=== PATIENT | female | born 1930 | race Caucasian/White ===

== ENCOUNTER 2017-11-04 17:44 | Inpatient (IN) | payer MEDICARE ==
[2017-11-04] MEDS ORDERED: NS 0.9% 1000 ML* 1,000 ML IV SCH ×2 (18:30→20:23)
--- OUTSIDE RECORDS SUMMARY | 2017-11-04 18:34 | XMS REPORT ---
:1930 External Reference #:[id number] Author Organization [employer] Address [address] [address] Phone [phone] Care Team Providers Name Role Phone Sylvia Griffin MD Primary Care Physician Unavailable Payers Type Date Identification Numbers Payment Provider Subscriber Medicare Primary Effective: Policy Number: Medicare Anurag Anderson 1998 [id number] PayID: [id number] [address] [place] [address] [facility] Part B Policy Number: [id number] [facility] Anurag Anderson PayID: [id number] [address] [place] [address] Problems Date Description Provider Status Onset: 10/21/2017 Closed fracture of metatarsal bone Jaylen Miramontes MD Active Family History Date Family Member(s) Problem(s) Comments General Heart Disease General Diabetes Father due to CHF () Mother Lung Cancer Mother due to Lung Cancer () Social History Type Date Description Comments Marital Status Single Lives With Alone Cigarette Use Never Smoked Cigarettes ETOH Use consumes 1-2 glasses of wine per day Smoking Patient has never smoked Recreational Drug Use Denies Drug Use Daily Caffeine Consumes on average 2 cups of decaff coffee per day Exercise Type/Frequency Exercises regularly Allergies, Adverse Reactions, Alerts Date Description Reaction Status Severity Comments 06/03/2013 NKDA active Medications Medication Date Status Form Strength Qnty SIG Indications Ordering Provider Multivitamins Active Capsules 1 by Unknown 000 mouth every day Vitamin C, D, E Active daily Unknown 000 Beta Carotene Active Capsules daily Unknown 000 Glucosamine Active Tablets daily Unknown Chondroitin 000 Complex Advanced Omeprazole Active Capsules 20mg [address] mouth every day prn OTC Sleep Aide Active as needed Unknown 000 No Active Hx Manuelito S. Medications 017 - Willow, MD Nhan Silva Hx Tablets 5mg one by Unknown 000 - mouth at bedtime 017 as needed for sleep Vital Signs Date Vital Result Comment 10/21/2017 Height 59 inches 4'11" Weight 130.00 lb BP Systolic 128 mmHg BP Diastolic 78 mmHg Body Temperature 98.1 F Pain Level 1 BMI (Body Mass Index) 26.3 kg/m2 07/10/2017 Height 59 inches 4'11" Weight 128.00 lb w/o shoes Heart Rate 80 /min reg BP Systolic 144 mmHg Lue, reg cuff BP Diastolic 76 mmHg Lue, reg cuff BP Systolic Sitting 136 mmHg Rue, reg cuff BP Diastolic Sitting 76 mmHg Rue, reg cuff BP Systolic Standing 134 mmHg Rue BP Diastolic Standing 76 mmHg Rue Respiratory Rate 16 /min BMI (Body Mass Index) 25.9 kg/m2 Ejection Fraction 60-65% as of 11/2016 echo 01/15/2017 Heart Rate 80 /min BP Systolic 128 mmHg BP Diastolic 80 mmHg Respiratory Rate 16 /min Body Temperature 97.7 F 12/18/2016 Heart Rate 72 /min Respiratory Rate 18 /min Body Temperature 97.7 F 12/11/2016 BP Systolic 130 mmHg BP Diastolic 74 mmHg Respiratory Rate 16 /min 11/19/2016 Heart Rate 72 /min BP Systolic 108 mmHg BP Diastolic 70 mmHg Respiratory Rate 18 /min Body Temperature 98.6 F 11/13/2016 Height 60 inches 5'0" Weight 128.00 lb Heart Rate 66 /min BP Systolic 130 mmHg BP Diastolic 70 mmHg Respiratory Rate 16 /min Body Temperature 98.6 F BMI (Body Mass Index) 25.0 kg/m2 06/03/2013 Height 61 inches 5'1" Weight 130.00 lb Heart Rate 73 /min BP Systolic 156 mmHg BP Diastolic 75 mmHg BMI (Body Mass Index) 24.6 kg/m2 Results Test Date Test Result H/L Range Note Laboratory test finding 06/18/2017 B-Type Natriuretic Peptide 68 pg/mL 1, 2 BNP Troponin-I (TnI) 0.00 ng/mL <0.04 1, 3 Comp Metabolic Panel 06/18/2017 Sodium 140 mmol/L 133-145 1 Potassium 3.9 mmol/L 3.5-5.0 1 Chloride 106 mmol/L 101-111 1 Co2 Carbon Dioxide 31 mmol/L 22-32 1 Anion Gap 3 mmol/L 2-11 1 Glucose 101 mg/dL High 70-100 1 Blood Urea Nitrogen 17 mg/dL 6-24 1 Creatinine 0.53 mg/dL 0.51-0.95 1 BUN/Creatinine Ratio 32.1 High 8-20 1 Calcium 9.0 mg/dL 8.6-10.3 1 Total Protein 6.4 g/dL 6.4-8.9 1 Albumin 4.0 g/dL 3.2-5.2 1 Globulin 2.4 g/dL 2-4 1 Albumin/Globulin Ratio 1.7 1-3 1 Total Bilirubin 0.40 mg/dL 0.2-1.0 1 Alkaline Phosphatase 61 U/L 34-104 1 Alt 19 U/L 7-52 1 Ast 23 U/L 13-39 1 Egfr Non- 109.1 >60 1 Egfr 140.3 >60 1, 4 Laboratory test finding 06/18/2017 TSH (Thyroid Stim 3.29 mcIU/mL 0.34- 5.60 1, 5 Horm) Vitamin B12 382 pg/mL 180-914 1, 6 Laboratory test finding 12/11/2016 Surgical Pathology SEE RESULT BELOW 7 Laboratory test finding 11/13/2016 Surgical Pathology SEE RESULT BELOW 8, 9 1 [id number] 2 >100 to <200 pg/mL: likely compensated congestive heart failure (CHF) 200 to 400 pg/mL: likely moderate CHF >400 pg/mL: likely moderate to severe CHF 3 [id number] 4 Because ethnic data is not always readily available, this report includes an eGFR for both -Americans and non- Americans. The National Kidney Disease Education Program (NKDEP) does not endorse the use of the MDRD equation for patients that are not between the ages of 18 and 70, are , have extremes of body size, muscle mass, or nutritional status, or are non- or non-. According to the National Kidney Foundation, irrespective of diagnosis, the stage of the disease is based on the level of kidney function: Stage Description GFR(mL/min/1.73 m(2)) 1 Kidney damage with normal or decreased GFR 90 2 Kidney damage with mild decrease in GFR 60-89 3 Moderate decrease in GFR 30-59 4 Severe decrease in GFR 15-29 5 Kidney failure <15 (or dialysis) 5 [id number] 6 Normal Range 180 to 914 Indeterminate Range 145 to 180 Deficient Range <145 7 SEE RESULT BELOW Name: ANURAG ANDERSON Analia : [address]: Manuelito Daugherty MD Acct: [id number] Unit: [id number] AGE: 86 Location: [facility] Re12/11/16 SEX: F Status: REG REF SPEC: [id number] EVELYN: 12/11/16152 [facility] DR: Manuelito Daugherty MD REQ: [id number] RECD: 12/11/16 STATUS: SOUT _ ORDERED: LEVEL IV COMMENTS: [id number] FINAL DIAGNOSIS Skin, chest, excision: -- 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 -- All margins are clear. -- Incidental adjacent seborrheic keratosis, inflamed COMMENT: The previous lesion at this site (S1) has been completely excised. CLINICAL HISTORY See S1 for previous pathology report PRE-OPERATIVE DIAGNOSIS Re-excision of skin cancer from chest GROSS DESCRIPTION The specimen is received in formalin labeled, Skin Lesion, Chest, and consists of a 2.8 x 0.8 cm mottled houser-white unoriented skin ellipse excised to a maximum depth of 0.3 cm. The specimen is inked, serially sectioned and entirely submitted in three cassettes. Signed (signature on file) Naima Sloan MD 01/24 1401 END OF REPORT * ML=Testing performed at Main Lab DEPARTMENT OF PATHOLOGY, [address] [place] [address] Michele John M.D. Director [facility] # [id number] SEE RESULT BELOW Name: ANURAG ANDERSON : [address]: Manuelito Daugherty MD Acct: [id number] Unit: [id number] AGE: 86 Location: [facility] Re11/13/16 SEX: F Status: REG REF SPEC: [id number] EVELYN: 11/13/16 [facility] DR: Manuelito Daugherty MD REQ: [id number] RECD: 11/13/16 STATUS: MAE GORDILLO DR: Zeus Garrett MD _ ORDERED: LEVEL IV/2 COMMENTS: [id number] FINAL DIAGNOSIS 1. Skin, right eyebrow, excision: -- Inflamed hyperkeratotic actinic keratosis with focal high-grade dysplasia (squamous carcinoma in situ). -- Deep, tip and lateral margins of resection are clear. 2. Skin, upper chest, excision: -- Squamous carcinoma in situ. -- Carcinoma in situ extends to the unoriented lateral margin of resection. CLINICAL HISTORY No history given GROSS DESCRIPTION 1. The specimen is received in formalin labeled, Right Eyebrow Skin Lesion , and consists of a 1.5 x 0.8 cm houser-white hairbearing unoriented skin ellipse excised to a depth of 0.5 cm with a central 0.7 x 0.5 cm houser-brown spiculated to scabrous area. The specimen is inked, serially sectioned and entirely submitted in one cassette. 2. The specimen is received in formalin labeled, Upper Chest Skin Lesion, and consists of a 0.6 x 0.4 cm speckled houser-brown scabrous skin ellipse excised to a depth 0.3 cm, which is inked, trisected and entirely submitted in one cassette. Signed (signature on file) Michele John MD 1444 END OF REPORT * ML=Testing performed at Main Lab DEPARTMENT OF PATHOLOGY, [address] [place] [address] Michele John M.D. Director [facility] # [id number] Procedures Date CPT Code Description Status 07/10/2017 10965 EKG Tracing & Interpretation Completed 06/27/2017 10861 Holter Monitor Review (24 hr)dr ochoa &ampDami sharma Completed only 12/11/2016 73196 Excise Malig Lesion 1.1-2CM Trunk/Arm/Leg Completed 11/13/2016 78553 Excise Malig Lesion 1.1-2CM Face/Ear/Eyelid/Nose/Lip Completed 11/13/2016 09939 Biopsy Skin Lesion Single Completed 11/12/2016 20238 ECHO Transthoracic, Real-Time 2D With Doppler And Color Completed Flow 07/30/2016 63321 Removal Devitalization Tissue Wound Less Than Equal 20 Completed Square CM Encounters Type Date Location Provider CPT E/M Dx Office Visit 07/10/2017 9:00a [facility] 20706 R42 Kierra Aguiar M.D. R94.31 I44.7 I34.0 I36.1 I37.1 Office Visit 01/15/2017 4:00p [facility] Manuelito Daugherty 80161 D04.5 Of Kierra FRANCO Office Visit 11/13/2016 2:00p [facility] Manuelito Daugherty 75158 D04.39 Of Kierra FRANCO D04.39 D04.5 D04.5 Office Visit 08/14/2016 1:45p [facility], [address] S81.812D [facility] Office Visit 07/02/2013 4:30p [facility] Benny Henriquez 82889 836.0 Of [facility] Office Visit 06/03/2013 1:00p [facility] 30599 836.0 Of [facility] Plan of Care Future Appointment(s):11/21/2017 1:15 pm - [facility] 11:20 am - J[facility] M.[facility]. at [facility]/21/2017 - Jaylen Fe, MDS92.321A Disp fx of second metatarsal bone, right foot, initNew Xrays:Foot Right 3+ VWSFollow up:Follow Up: 4 xyvuxM14.331A Disp fx of third metatarsal bone, right foot, initS92.341A Disp fx of fourth metatarsal bone, right foot, init
--- OUTSIDE RECORDS SUMMARY | 2017-11-04 18:34 | XMS REPORT ---
:1930 External Reference #:[id number] Author Organization [employer] Address [address] [address] Phone [phone] Care Team Providers Name Role Phone Sylvia Griffin MD Primary Care Physician Unavailable Payers Type Date Identification Numbers Payment Provider Subscriber Medicare Primary Effective: Policy Number: Medicare Anurag Anderson 1998 [id number] PayID: [id number] [address] [place] [address] [facility] Part B Policy Number: [id number] [facility] Anurag Anderson PayID: [id number] [address] [place] [address] Problems Date Description Provider Status Onset: 10/21/2017 [...] Form Strength Qnty SIG Indications Ordering Provider Fludrocortisone 10/27/ Active Tablets 0.1mg 60tabs one po Qutaybeh Acetate 2016 bid Rey Aguiar M.D. Multivitamins / Active Capsules 1 by Unknown 0000 mouth every day Vitamin C, D, E / Active daily Unknown 0000 Beta Carotene / Active Capsules daily Unknown 0000 Glucosamine / Active Tablets daily Unknown Chondroitin 0000 Complex Advanced Omeprazole / Active Capsules 20mg [address] mouth every day prn OTC Sleep Aide / Active as needed Unknown 0000 No Active 11/12/ Hx Manuelito Le Medications 2017 - Willow 11/13/ MD 2016 Ambien / Hx Tablets 5mg one by Unknown 0000 - mouth at 06/09/ bedtime 2017 as needed for sleep Vital Signs Date Vital Result Comment 10/27/2017 Height 59 inches 4'11" Weight 126.00 lb with boot brace Heart Rate 46 /min BP Systolic Sitting 130 mmHg LA reg cuff BP Diastolic Sitting 60 mmHg LA reg cuff BMI (Body Mass Index) 25.4 kg/m2 Ejection Fraction 60%-65% echo 11/12/16 10/21/2017 Height 59 inches 4'11" Weight 130.00 [...] Pathology SEE RESULT BELOW 8, 9 1 [id number] 2 >100 to <200 pg/mL: likely compensated congestive heart failure (CHF) 200 to 400 pg/mL: likely moderate CHF >400 pg/mL: likely moderate to severe CHF 3 [id number] 4 Because ethnic data is not always [...] 5 Kidney failure <15 (or dialysis) 5 [id number] 6 Normal Range 180 to 914 Indeterminate Range 145 to 180 Deficient Range <145 7 SEE RESULT BELOW Name: ANURAG ANDERSON : [address]: Manuelito Daugherty MD Acct: [id number] Unit: [id number] AGE: 86 Location: [facility] Re12/11/16 SEX: F Status: REG REF SPEC: [id number] EVELYN: 12/11/16-[address]: Manuelito Daugherty MD REQ: [id number] RECD: 12/11/16 STATUS: SOUT _ ORDERED: LEVEL IV COMMENTS: [id number] FINAL DIAGNOSIS Skin, chest, excision: -- 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 -- All margins are clear. -- Incidental adjacent seborrheic keratosis, inflamed COMMENT: The previous lesion at this site (S17) has been completely excised. CLINICAL HISTORY See [...] performed at Main Lab DEPARTMENT OF PATHOLOGY, [address] [place] [address] Michele John M.D. Director [facility] # [id number] SEE RESULT BELOW Name: ANURAG ANDERSON : [address]: Manuelito Daugherty MD Acct: [id number] Unit: [id number] AGE: 86 Location: [facility] Re11/13/16 SEX: F Status: REG REF SPEC: [id number] EVELYN: 11/13/16 [facility] DR: Manuelito Daugherty MD REQ: [id number] RECD: 11/13/16 STATUS: MAE GORDILLO DR: Zeus Garrett MD _ ORDERED: LEVEL IV/2 COMMENTS: [id number] FINAL DIAGNOSIS 1. Skin, right eyebrow, excision: [...] performed at Main Lab DEPARTMENT OF PATHOLOGY, [address] [place] [address] Michele John M.D. Director [facility] # [id number] Procedures Date CPT Code Description Status 07/10/2017 97244 EKG Tracing & Interpretation Completed 06/27/2017 30879 Holter Monitor Review (24 hr)dr ochoa & edith Completed only 12/11/2016 82644 Excise Malig Lesion 1.1-2CM Trunk/Arm/Leg Completed 11/13/2016 90648 Excise Malig Lesion 1.1-2CM Face/Ear/Eyelid/Nose/Lip Completed 11/13/2016 31460 Biopsy Skin Lesion Single Completed 11/12/2016 00398 ECHO Transthoracic, Real-Time 2D With Doppler And Color Completed Flow 07/30/2016 83834 Removal Devitalization Tissue Wound Less Than Equal 20 Completed Square CM Encounters Type Date Location Provider CPT E/M Dx Office Visit 07/10/2017 9:00a [facility] [address] R42 Kierra Aguiar M.D. R94.31 I44.7 I34.0 I36.1 I37.1 Office Visit 01/15/2017 4:00p [facility] Manuelito Daugherty, [address]95[address] D04.5 Of Kierra FRANCO Office Visit 11/13/2016 2:00p [facility] Daugherty 18804 D04.39 Of Kierra FRANCO D04.39 D04.5 D04.5 Office Visit 08/14/2016 1:45p [facility], [address] S81.812D [facility] Office Visit 07/02/2013 4:30p [facility] Henri[facility] [address]2826 836.0 Of [facility] Office Visit 06/03/2013 1:00p [facility] [address]1610 836.0 Of [facility] Plan of Care Future Appointment(s):01/08/2018 10:00 am - Jai Aguiar M.D. at [facility]12/10/2017 9:30 am - Jai Aguiar M.D. at [facility]11/21/2017 1:15 pm - Jaylen Miramontes MD at [facility]/27/2017 - Jai Aguiar M.D.R55 Syncope and collapseNew Orders :Event MonitorStress Test, Pharmacologic Nuclear (Lexiscan)Follow up:January 2018 before leaving to [facility]
[2017-11-04 18:37] LABS: ABS Basophils 0 10^3/ul (0-0.2); ABS Eosinophils 0.1 10^3/ul (0-0.6); ABS Lymphocytes 1.4 10^3/ul (1.0-4.8); ABS Monocytes 0.5 10^3/ul (0-0.8); ABS Neutrophils 3.9 10^3/ul (1.5-7.7); ABS Nucleated RBC 0 10^3/ul; Hematocrit 39 % (35-47); Hemoglobin 12.9 g/dl (12.0-16.0); Lymphocyte % 23.7 % (25-47); Mean Corpuscular HGB Conc 33 g/dl (31-36); Mean Corpuscular Hemoglobin 30 pg (27-31); Mean Corpuscular Volume 91 fL (80-97); Mean Platelet Volume 11 um3 (7.4-10.4); Nucleated Red Blood Cells % 0; Platelet Count 167 10^3/ul (150-450); Red Blood Count 4.26 10^6/ul (4.0-5.4); Red Cell Distribution Width 13 % (10.5-15); White Blood Count 5.9 10^3/ul (3.5-10.8)
[2017-11-04 18:47] LABS: INR 1.02 (0.77-1.02)
--- NOTE | 2017-11-04 19:15 | ED ---
Courtney Chandra Abhishek, scribed for Julian Desir MD on 11/04/17 at 1903 . Shortness of Breath - HPI Summary HPI Summary: This patient is a 67 y/o F [facility] by a female with a chief complaint of SOB since a week ago. Pt was given medication by doctor that caused her to feel dizzier and pt does not know why she was given the medication. Pt's female acquaintance states the patient was huffing and puffing throughout the week. the patient rates the pain 0/0 in severity. symptoms aggravated by sleeping and movement. symptoms alleviated by nothing. patient reports indigestion (onset Friday night). Patient denies melena, burning urination, abd pain, denies foot pain. Pt is currently not on a blood thinner. Pt was in [place] since the 19 of October abd reports fainting, and dizziness in [place] (2 times). Patient only takes vitamins, NKA, and also has a fractured right foot. - History of Current Complaint Chief Complaint: EDShortnessOfBreath Time Seen by Provider: 11/04/17 18:06 Hx Obtained From: Patient Onset/Duration: Gradual Onset, Lasting Weeks - one week, Still Present Timing: Constant Aggrevating Factors: Other - sleeping and movement Alleviating Factors: Nothing - Allergy/Home Medications Allergies/Adverse Reactions: Allergies Allergy/AdvReac Type Severity Reaction Status Date / Time No Known Allergies Allergy Verified 06/07/16 13:14 PMH/Surg Hx/FS Hx/Imm Hx Endocrine/Hematology History: Denies: Hx Diabetes, Hx Anemia Cardiovascular History: Denies: Hx Hypertension, Hx Pacemaker/ICD Respiratory History: Denies: Hx Chronic Obstructive Pulmonary Disease (COPD) History: Denies: Hx Renal Disease Sensory History: Denies: Hx Hearing Aid Psychiatric History: Denies: Hx Panic Disorder - Cancer History Hx Chemotherapy: No Hx Radiation Therapy: No - Surgical History Surgery Procedure, Year, and Place: Lt BREAST- LUMPECTOMY xs 2-BENIGN -1960s. CATARACT - 2008. TONSILECTOMY - Immunization History Date of Influenza Vaccine: 07/2017 Immunizations Up to Date: Yes Infectious Disease History: No Infectious Disease History: Denies: Traveled Outside the [place] in Last 30 Days - Social History Alcohol Use: Occasionally Substance Use Type: Reports: None Smoking Status (MU): Never Smoked Tobacco Review of Systems Constitutional: Negative Eyes: Negative ENT: Negative Cardiovascular: Negative Positive: Shortness Of Breath Gastrointestinal: Other - Negative melena Positive: Other - indigestion. Negative: Abdominal Pain Negative: burning Positive: Myalgia - Negative foot pain Skin: Negative Neurological: Negative Psychological: Normal All Other Systems Reviewed And Are Negative: Yes Physical Exam - Summary Physical Exam Summary: General: well-appearing, no pain distress Skin: warm, color reflects adequate perfusion, dry Head: normal Eyes: EOMI, KRYS ENT: normal Neck: supple, nontender Respiratory: CTA, breath sounds present, Crackles in the right base Cardiovascular: RRR bradycardic and murmur Abdomen: soft, nontender Bowel: present Musculoskeletal: Calves are non-swollen and non-tender, right foot in the walking boot Neurological: normal, sensory/motor intact, A&O x3 Psychological: affect/mood appropriate Triage Information Reviewed: Yes Vital Signs On Initial Exam: Initial Vitals Temp Pulse Resp BP Pulse Ox 98.4 F 40 18 160/54 92 11/04/17 17:48 11/04/17 17:48 11/04/17 17:48 11/04/17 17:48 11/04/17 17:48 Vital Signs Reviewed: Yes - [place] Coma Scale Coma Scale Total: 15 Diagnostics - Vital Signs Vital Signs Temp Pulse Resp BP Pulse Ox 11/04/17 18:23 98 11/04/17 17:48 98.4 F 40 18 160/54 92 - Laboratory Lab Results: Lab Results 11/04/17 11/04/17 Range/Units 18:25 18:25 WBC 5.9 (3.5-10.8) 10^3/ul RBC 4.26 (4.0-5.4) 10^6/ul Hgb 12.9 (12.0-16.0) g/dl Hct 39 (35-47) % MCV 91 (80-97) fL MCH 30 (27-31) pg MCHC 33 (31-36) g/dl RDW 13 (10.5-15) % Plt Count 167 (150-450) 10^3/ul MPV 11 H (7.4-10.4) um3 Neut % (Auto) 66.8 (38-83) % Lymph % (Auto) 23.7 L (25-47) % [place] % (Auto) 7.9 (1-9) % Eos % (Auto) 1.0 (0-6) % Baso % (Auto) 0.6 (0-2) % Absolute Neuts (auto) 3.9 (1.5-7.7) 10^3/ul Absolute Lymphs (auto) 1.4 (1.0-4.8) 10^3/ul Absolute Monos (auto) 0.5 (0-0.8) 10^3/ul Absolute Eos (auto) 0.1 (0-0.6) 10^3/ul Absolute Basos (auto) 0 (0-0.2) 10^3/ul Absolute Nucleated RBC 0 10^3/ul Nucleated RBC % 0 INR (Anticoag Therapy) 1.02 (0.77-1.02) APTT 32.5 (26.0-36.3) seconds Result Diagrams: 11/04/17 18:25 11/04/17 18:25 Lab Statement: Any lab studies that have been ordered have been reviewed, and results considered in the medical decision making process. Course/Dx - Course Course Of Treatment: ADMIT HOSPITALIST. CRITICAL CARE TIME LESS THAN 30 MINUTES - Diagnoses Provider Diagnoses: Heart block, Dyspnea Discharge - Discharge Plan Condition: Stable Disposition: ADMITTED TO [facility] Referrals: Magalis Griffin, JEWELRY REPAIRER [Primary Care Provider] - The documentation as recorded by the Courtney grossman Abhishek accurately reflects the service I personally performed and the decisions made by , Julian Desir MD.
--- NOTE | 2017-11-04 19:22 | RAD ---
INDICATION: Right lower extremity edema. COMPARISON: There are no prior studies available for comparison. TECHNIQUE: Multiple real-time, color flow and Doppler tracings of the right lower extremity were obtained. FINDINGS: The common femoral, femoral, profunda femoral and popliteal veins all demonstrate normal compressibility, augmentation with compression and phasic response with respiration. The posterior tibial and peroneal veins demonstrate normal compressibility and augmentation with compression. IMPRESSION: NO EVIDENCE FOR DEEP VENOUS THROMBOSIS.
[2017-11-04 20:05] LABS: Urine Appearance Clear; Urine Blood 1+ (Negative); Urine Color Yellow; Urine Ketones Negative (Negative); Urine Protein Negative (Negative); Urine Specific Gravity 1.009 (1.010-1.030); Urine Urobilinogen Negative (Negative)
[2017-11-04] MEDS: Heparin VIAL(*) 5000 UNITS/ML VIAL (FIVE THOUSAND) SUBCUT SCH (22:01)
[2017-11-04] MEDS: Nitrofurantoin Macrocrystals* 100 MG CAP PO SCH (22:19)
--- NOTE | 2017-11-05 01:04 | HP ---
CC: ; Dr. Aguiar * [facility] MEDICINE HISTORY AND PHYSICAL: DATE OF ADMISSION: 11/04/17 PRIMARY CARE PROVIDER: CARTON FORMING MACHINE TENDER: Dr. Aguiar ATTENDING PHYSICIAN: Dr. Johnny Chavez * (dictation provided by Jaelyn Moser NP ). CHIEF COMPLAINT: Shortness of breath with episodes of lightheadedness and fainting. HISTORY OF PRESENT ILLNESS: Ms. Anderson is an 87-year-old female with no significant past medical history, who presents today to the hospital at the strong urging of her friend out of concern for recent history of lightheadedness , fainting, and shortness of breath with activity. Ms. Anderson lives in [facility] for half of the year. She has some memory issues on conversation with her today. Per the electronic medical record outpatient with Dr. Aguiar, the patient had been seen back in June for concern of lightheadedness. The patient had had an EKG, a Holter monitor, and transthoracic echocardiogram this year out of concern for this lightheadedness with no concerning abnormal findings. She went [place] right after she saw Dr. Aguiar. While there, she reported having 2 fainting spells. She also had a mechanical fall and broke 3 toes on her right foot. She states this was not a fainting spell but a mechanical fall related to tripping. She has also noted that she has been more short of breath than usual with activity. She returned to [place] on 10/19/17. She saw Dr. Aguiar per her report on 10/21/17. The plan per her report was for her to have a 3-week heart monitor placed and to go on for a stress test. The patient has a friend in town, who reviewed the patient's recent symptoms with a third friend (who is also a nurse) and the nurse recommended strongly that the patient come to the emergency room for evaluation. The patient states she was out shopping all day and feeling reasonably well without any particular lightheadedness. On returning home and walking up the stairs, she did feel more short of breath again with that level of exertion. She took a nap and then spoke with the friend, who prodded her to come to the ED. In the emergency room, the patient was found to have a bradycardia with a heart rate running as low as 30s. She has a likely Mobitz I block with 2:1 conduction. The remainder of her workup shows that she has an elevated BNP at 627 and a suspicion for a possible urinary tract infection with 2+ leuk esterase , 3+ wbc, but no bacteria. PAST MEDICAL HISTORY: Diverticulosis. MEDICATIONS: The patient takes multiple vitamins including vitamin B, vitamin C , vitamin D, vitamin E, fish oil, chondroitin, and multivitamin daily. ALLERGIES: No known drug allergies. FAMILY HISTORY: The patient reports that her mother related to secondhand smoke from lung cancer. Father related to smoking, had CHF and COPD. SOCIAL HISTORY: The patient states she is never a smoker. She drinks wine occasionally. She denies drug use. She lives alone. She states that her cousins, Neymar and Amanda Case, would be her healthcare proxies, they live in [place]. REVIEW OF SYSTEMS: A 14-point review of systems was completed with Ms. Anderson and all those not mentioned above were negative. PHYSICAL EXAMINATION GENERAL: Ms. Anderson is lying in the bed with her friend at the bedside. She is in no acute distress. VITAL SIGNS: Temperature 98.4, heart rate 41, respiratory rate 22, O2 saturation 91% on room air, blood pressure 178/59. LUNGS: Clear to auscultation bilaterally with no accessory muscle use and good aeration. HEART: S1, S2 and slow, but regular. ABDOMEN: Soft, nontender with bowel sounds positive x4. EXTREMITIES: Trace edema bilaterally and she has a brace to her right foot. SKIN: Intact. NEUROLOGIC: She is alert. She is oriented x3. She does have some apparent memory loss, but tells a coherent story. She moves all extremities equally. There is no facial asymmetry or focal weakness. Extraocular movements are intact. DIAGNOSTIC STUDIES/LAB DATA: WBC 5.9, hemoglobin 12.9, hematocrit 39, platelet count 167. INR 1.02. D-dimer 277. Sodium 139, potassium 4.1, chloride 106, serum bicarbonate 28, BUN 21, creatinine 0.76, glucose 99, lactic acid 0.6. CRP 3.55. BNP 627. TSH 5.46. Urine shows 2+ leuk esterase and 3+ wbc, but no bacteria. EKG shows 2:1 heart block either Mobitz I or Mobitz II. The patient's heart rate did increase with activity; therefore, it is more likely a Mobitz I. Venous Doppler study was performed for lower extremity swelling to the right and showed no evidence for deep vein thrombosis. ASSESSMENT: Ms. Anderson is an 87-year-old female with no significant past medical history, who presents to the hospital after a year or so of intermittent episodes of lightheadedness culminating in 2 episodes of fainting while in [place] a few weeks ago. She also reports dyspnea on exertion. In the emergency room, she has been found to have a likely Mobitz I block. Our plans are for admission to the intensive care unit for the followin. Symptomatic heart block: Based on the heart rate response to activity at this point it is suspected as Mobitz I, but it is difficult to tell given that she has 2:1 conduction. I have spoken with Dr. Riggs, who will be seeing the patient tomorrow in consultation. He recommends that the patient be n.p.o. after midnight in the event that a pacemaker needs to be placed. He also recommends that the patient have a transthoracic echocardiogram. I note that her last one was from November 2016 and showed no significant wall motion or valvular abnormalities with intact ejection fraction. The patient is not on any medications that would precipitate heart blocks. 2. Question urinary tract infection. The patient does not endorse any specific urinary tract infection symptoms, but she does have 2+ leuk esterase, 3 + wbc in the urine. Plan to treat with nitrofurantoin and await urine culture results. 3. DVT prophylaxis with heparin subcu. 4. Code status is DNR. TIME SPENT: Approximately 60 minutes was spent in the admission of this patient , more than half the time spent with the patient at the bedside reviewing the events leading up to this hospitalization, performing the physical examination, and reviewing my plan of care. JAELYN MOSER, DISPLAY AND BANNER DESIGNER [id number]/[facility] #: [id number] GAIL
[2017-11-05] MEDS: Heparin VIAL(*) 5000 UNITS/ML VIAL (FIVE THOUSAND) SUBCUT SCH ×3 (05:47→21:27)
[2017-11-05] MEDS ORDERED: ceFAZolin 2 GM PREMIX (*) 2 GM/50 ML BAG IVPB ONE (09:01)
[2017-11-05] MEDS ORDERED: NS 0.9% 1000 ML* 1,000 ML IV SCH (09:15)
[2017-11-05] MEDS: Nitrofurantoin Macrocrystals* 100 MG CAP PO SCH ×4 (09:49→21:28)
--- NOTE | 2017-11-05 10:47 | ECHO ---
Patient: ANURAG RICARDO [facility] Rec#: [id number] : 1930 Date: 11/05/2017 Age: 87y Height: 150 cm / 59.1 in Weight: 57.2 kg / 126.1 lbs Sex: F BSA: 1.5 Room#: ICU 3 Admit Date#: 11/05/2017 Type: Inpatient Referring: Jaelyn Moser NP Reading: Lyly Read MD Learning And Development Associate: Yvette Waite RN RDCS CC: Jai Aguiar MD CC: Magalis Griffin NP Transthoracic Echocardiogram Indication: Heart block, syncope, SOB BP: 162/62 HR: 36 Rhythm: Heart Block Findings History: Lightheadedness, syncope Technical Comments: The study quality is fair. Left Ventricle: The left ventricular chamber size is normal. There is increased basal septal hypertrophy noted without evidence of an increased gradient across the left ventricular outflow tract. Global left ventricular wall motion and contractility are within normal limits. There is normal left ventricular systolic function. The estimated ejection fraction is 55-60%. The assessment of diastolic function is non-diagnostic. Left Atrium: The left atrium is mildly dilated. Right Ventricle: The right ventricular chamber size and systolic function are within normal limits. Right Atrium: The right atrial cavity size is normal. Aortic Valve: The aortic valve is trileaflet. The aortic valve leaflets are mildly thickened. There is a trace of aortic regurgitation. There is borderline aortic stenosis present. Mitral Valve: The mitral valve leaflets are mildly thickened. There is moderate mitral regurgitation. There is no evidence of mitral stenosis. Tricuspid Valve: The tricuspid valve leaflets are normal. There is moderate tricuspid regurgitation. The right ventricular systolic pressure is estimated at 49 mmHg. There is evidence of moderate pulmonary hypertension. There is no tricuspid stenosis. Pulmonic Valve: The pulmonic valve structure is not well visualized. There is trace to mild pulmonic regurgitation. There is no pulmonic stenosis. Pericardium: There is no significant pericardial effusion. A pericardial fat pad is visualized. A left pleural effusion is present. Aorta: There is no dilatation of the ascending aorta. The aortic arch is not well visualized. There is no dilation of the aortic root. Pulmonary Artery: The main pulmonary artery is not well visualized. Venous: The inferior vena cava appears normal in size. There is less than 50% respiratory change in the inferior vena cava dimension. Conclusions The patient was in high degree heart block thoughout the study. The left ventricular chamber size is normal with basal septal hypertrophy noted. Global left ventricular wall motion and contractility are within normal limits. The estimated ejection fraction is 55-60%. The left atrium is mildly dilated. The right ventricular chamber size and systolic function are within normal limits. There is a trace of aortic regurgitation. The right ventricular systolic pressure is estimated at 49 mmHg, moderately elevated. A left pleural effusion is present. Compared with the prior echo of 11/12/16, the degree of MR and TR have increased from mild, PA pressure has increased from normal. Heart block is new. Measurements Name Value Normal Range RVDdMajor (2D) 3.6 cm (2.2 - 4.4) RAd ISD 4CH 4.8 cm (3.4 - 4.9) RA (A4C)W 4.4 cm (2.9 - 4.6) IVSd (2D) 1 cm (0.6 - 1) LVPWd (2D) 1 cm (0.6 - 1) LVIDd (2D) 4.6 cm (3.6 - 5.4) Aortic Annulus 1.7 cm (1.4 - 2.6) Ao root diameter (2D) 2.8 cm (2.1 - 3.5) Ascending Ao 3.1 cm (2.1 - 3.4) LA dimension (AP) 2D 3.3 cm (2.3 - 3.8) LAd ISD 4CH 5.1 cm (2.9 - 5.3) LA ISD 4CH W 4.2 cm (2.5 - 4.5) Name Value Normal Range LA ESV SP 4CH (A/L) 47 ml - LA ESV SP 2CH (A/L) 51 ml - LA ESV BP (A/L) 53 ml - LA ESV BP (A/L) index 35 ml/m2 - LA ESV SP 4CH (MOD) 44 ml - LA ESV SP 2CH (MOD) 49 ml - Name Value Normal Range MV E-wave Vmax 0.96 m/sec - MV deceleration time 269 msec - MV A-wave Vmax 1.1 m/sec - MV E:A ratio 0.9 ratio - LV septal e' Vmax 0.11 m/sec - LV lateral e' Vmax 0.14 m/sec - LV E:e' septal ratio 8.7 ratio - LV E:e' lateral ratio 6.9 ratio - Name Value Normal Range AV Vmax 1.6 m/sec - AV VTI 39.9 cm - AV peak gradient 11 mmHg - AV mean gradient 5 mmHg - LVOT diameter 1.84 cm - LVOT Vmax 1.1 m/sec - LVOT VTI 25.5 cm - LVOT peak gradient 4.7 mmHg - LVOT mean gradient 2.2 mmHg - DOI (VTI) 0.64 ratio - DOI (Vmax) 0.69 ratio - SV LVOT 67.7 ml - CO LVOT 2.4 l/min - Cardiac index 1.6 l/min/m2 - TRAMAINE (continuity Vmax) 1.8 cm2 - TRAMAINE (continuity VTI) 1.7 cm2 - Name Value Normal Range MR flow (PISA) 65 ml/sec - MR PISA radius 0.5 cm - MR alias Vmax 35 cm/sec - Name Value Normal Range TR Vmax 3.2 m/sec - TR peak gradient 41 mmHg - RAP 8 mmHg - RVSP 49 mmHg - IVC diameter 1.7 cm - Name Value Normal Range PV Vmax 0.94 m/sec -
--- NOTE | 2017-11-05 11:33 | CONS ---
CC: ; Dr. Aguiar; Hospitalist * CARDIOLOGY CONSULTATION: DATE OF CONSULT: 11/05/17 REASON FOR CONSULT: Syncope and heart block. HISTORY OF PRESENT ILLNESS: Mrs. Anderson is an 87-year-old woman who states she has had problems with lightheadedness and fainting for many months and has undergone outpatient workup with etiology never elucidated (echo performed on and Holter monitor on 06/26/17). The patient lives in [place] 3 months a year and had some syncopal episodes while there and she continues to have episodes where she will feel lightheaded and winded with exertion. When I examined her and saw her boot on for fractured right foot, she told me this was a trip. Most recently on return here, she has a friend who is a nurse who was extremely short of breath walking on the level and her nursing friend urged her to present to the emergency department. In the emergency department, she was found to have 2:1 heart block and she was admitted to the intensive care unit overnight. The patient states with the oxygen on, her breathing is better. She states she had 1 episode of chest discomfort, but is vague about it. It does not sound like it was related to exertion. The patient was seen on 10/27/[address] Aguiar. His notes also document syncopal episodes in [place] and the fall and fracture. There was no ECG done at that time and her heart rate on that visit was 46 beats a minute. Plans were made for an event monitor and stress test, but they were not yet implemented. PAST MEDICAL HISTORY: 1. Dizziness. 2. Syncope. 3. Falling. 4. Diverticulosis. OUTPATIENT MEDICATIONS: Include; 1. Vitamin B. 2. Vitamin C. 3. Vitamin D. 4. Vitamin E. 5. Fish oil. 6. Chondroitin. 7. Multivitamins. ALLERGIES: She has no known drug allergies. FAMILY HISTORY: Significant in that her mother of lung cancer. Father with a history of congestive heart failure and he also had COPD with a smoking history. SOCIAL HISTORY: Never smoked. Occasional wine. No history of recreational drug use. REVIEW OF SYSTEMS: Negative for recent fevers, chills, or sweats. No recent cough, diarrhea, constipation, hematuria, or dysuria. No recent changes in bowel or bladder habits. No new [id number] medications and as above, almost a year of intermittent dizziness and syncopal episodes intermittently. She does not think she has been exposed to Lyme's and does not think she has had a Lyme titer, but is vague. PHYSICAL EXAM: General: On exam, the patient is an elderly woman, seated in bed, oxygen on at 45 degrees, appears comfortable, in no acute distress. Vital Signs: She is 4 feet 11 inches, weighs 140 pounds. Blood pressure 153/61, heart rate ranging from 35 to 41 beats a minute with high degree AV block. Oxygen saturation 97% on 2 L nasal cannula. She has been afebrile. Psychologic : Pleasant and cooperative. Neurologic: Awake, alert, and oriented to person and place. I did not evaluate for time. Skin: Warm and dry. No cyanosis or rashes. Age appropriate changes. HEENT: Pupils are equal and round. Mucous membranes moist. Neck: Without thyromegaly or lymphadenopathy. Good carotid pulses. No audible bruits. Lungs: Breath sounds were diminished in the bases bilaterally. Few rales in the left mid field, clear in other areas. Coronary: S1 and S2 regular. I did not appreciate murmurs. Abdomen: Soft and nontender. No hepatomegaly. Extremities: Lower extremities were free of edema. She has a boot on the right lower extremity. The lower extremities were warm. DIAGNOSTIC STUDIES/LAB DATA: monitor technician strips show intermittent complete heart block with AV dissociation and escape rhythm alternating with 2: 1 block. A 12-lead ECG done on 11/04/17 at 2110 shows a 2:1 heart block with intermittent beats with left bundle type morphology, others complexes of differing morphology, probable escape beats. LABA: white count 5.9, hemoglobin 12.9, hematocrit 39, and platelets 167,000. INR 1.02, PTT 32.5. D-dimer 277. Sodium 139, potassium 4.1, chloride 106, bicarb 28, BUN 21, creatinine 0.76, glucose 99, ALT 27. Troponin #1 of 0.03, troponin #2 of 0.02. BNP of 627. TSH 5.46. Urinalysis in the ED was leukocyte esterase positive, white cell positive, nitrite negative. Urine culture is pending. Holter from 06/26/17 unable to be interpreted, but per Dr. Aguiar, had a mean heart rate of 71 beats a minute, occasional PVCs and PACs and her echo of 11/12/16 showed an ejection fraction of 60% to 65%, mild mitral and mild tricuspid insufficiency. Final report for echo today pending. SUMMARY: In summary, Nuvia Anderson is an 87-year-old woman with many months of feeling lightheaded, shortness of breath on exertion, and intermittent syncope and falls, now presenting with evidence of AV dissociation and complete heart block. Her echo preliminarily shows normal left ventricular systolic function today and I have therefore, recommended she undergo dual chamber pacemaker implantation and specifics and detailed risks and benefits of the procedure were discussed in depth. The patient appears to have some degree of congestive heart failier on exam and her CXR showed pleural effusions, this may improve post pacemaker implantation, but she may need diuretics post pacemaker as well. I am awaiting your urine culture and sending a Lyme titer, but at age 87, she is at high risk for degenerative heart block and I do not plan to await the results of her Lyme titer prior to implantation. [id number]/[facility] #: [id number] MAIMONIDES MEDICAL CENTERDebi
[2017-11-05] MEDS ORDERED: Furosemide TAB* 20 MG ONE (12:01)
[2017-11-05] MEDS ORDERED: Lidocaine 1% INJ* 10 MG/ML 30 ML SDV ONE (12:28)
[2017-11-05] MEDS ORDERED: Midazolam* 1 MG/ML 5 ML VIAL (5 MG) ONE (12:31)
[2017-11-05] MEDS ORDERED: Iohexol 300 (CONTRAST) 10 ML SDV ONE (12:31)
[2017-11-05] MEDS ORDERED: fentaNYL* 50 MCG/ML 2 ML VIAL (100 MCG VIAL) ONE (12:31)
[2017-11-05] MEDS ORDERED: Furosemide IV* 10 MG/ML VIAL (40 MG) ONE (13:21)
[2017-11-05] MEDS ORDERED: ceFAZolin 1 GM VIAL(*) 1 GM in NS 0.9% 50 ML* 50 ML IVPB SCH (15:00)
[2017-11-05] MEDS: ceFAZolin 1 GM in Dextrose (*) 1 GM/50 ML BAG IVPB SCH ×2 (15:32→23:06)
--- NOTE | 2017-11-05 16:29 | RAD ---
Indication: Postop cardiac pacemaker placement. Comparison: October 30, 2015 Technique: Upright AP 1530 hours Report: Leftward rotation. Leads of newly placed LEFT chest wall pacemaker extend to the RIGHT atrium and RIGHT ventricle. Negative for pneumothorax. Mild prominence of interstitial markings. Probable small bilateral pleural effusions. Upper normal heart size. Prominent mildly ill-defined central pulmonary vasculature. IMPRESSION: Mild pulmonary vascular congestion and interstitial edema with probable small associated pleural effusions. Negative for pneumothorax post dual chamber cardiac pacemaker placement.
--- NOTE | 2017-11-05 17:15 | PN ---
Subjective Date of Service: 11/05/17 Interval History: This is an 87 year old female with no significant medical history that presented with a symptomatic bradycardia with dissociated heart block. Patient seen and examined, s/p PM insertion today with Dr. Read. C/O left sided incisional discomfort, denies chest pain, no SOB, no n/v, increased urine output since procedure, no fever or chills. No further complaints other than some mild fatigue. Objective Active Medications: Acetaminophen (Tylenol Tab*) 650 mg PO Q6H PRN PRN Reason: PAIN Furosemide (Lasix Tab*) 10 mg PO ONCE ONE Stop: 11/06/17 12:00 Last Admin: 11/05/17 12:03 Dose: 10 mg Heparin Sodium (Porcine) (Heparin Vial(*)) 5,000 units SUBCUT Q8HR [facility] Last Admin: 11/05/17 15:31 Dose: 5,000 units Cefazolin Sodium/Dextrose (Kefzol 1 Gm In Dextrose Duplex (*)) 1 gm in 50 mls @ 200 mls/hr IVPB Q8H [facility] Last Admin: 11/05/17 15:32 Dose: 200 mls/hr Nitrofurantoin Macrocrystals (Macrodantin*) 100 mg PO QID JERSON Stop: 11/11/17 17:01 Last Admin: 11/05/17 15:32 Dose: 100 mg Tramadol HCl (Ultram*) 50 mg PO Q8H PRN PRN Reason: PAIN - MODERATE TO SEVERE Vital Signs - 8 hr 11/05/17 11/05/17 11/05/17 09:32 10:00 10:31 Temperature Pulse Rate 35 36 33 Respiratory 27 12 19 Rate Blood Pressure 145/68 165/64 (mmHg) O2 Sat by Pulse 96 98 96 Oximetry 11/05/17 11/05/17 11/05/17 11:00 11:01 11:31 Temperature Pulse Rate 36 35 36 Respiratory 13 16 25 Rate Blood Pressure 183/56 171/64 (mmHg) O2 Sat by Pulse 98 97 100 Oximetry 11/05/17 11/05/17 11/05/17 11:48 12:00 12:02 Temperature 98.6 F Pulse Rate 36 35 Respiratory 12 17 Rate Blood Pressure 161/116 (mmHg) O2 Sat by Pulse 99 99 Oximetry 11/05/17 11/05/17 11/05/17 14:50 15:00 15:01 Temperature Pulse Rate 73 72 Respiratory 17 28 25 Rate Blood Pressure 173/82 (mmHg) O2 Sat by Pulse 93 94 Oximetry 11/05/17 11/05/17 11/05/17 15:31 15:56 16:00 Temperature Pulse Rate 73 69 76 Respiratory 20 30 19 Rate Blood Pressure 178/123 178/84 (mmHg) O2 Sat by Pulse 95 98 92 Oximetry Oxygen Devices in Use Now: Nasal Cannula Appearance: Alert, NAD Eyes: No Scleral Icterus, PERRLA Ears/Nose/Mouth/Throat: NL Teeth, Lips, Gums, Mucous Membranes Moist Neck: NL Appearance and Movements; NL JVP, Trachea Midline Respiratory: Symmetrical Chest Expansion and Respiratory Effort, Clear to Auscultation Cardiovascular: NL Sounds; No Murmurs; No JVD - 100% paced on tele, no ectopy, No Edema Abdominal: NL Sounds; No Tenderness; No Distention Extremities: No Edema, No Clubbing, Cyanosis Skin: No Rash or Ulcers Neurological: Alert and Oriented x 3, NL Sensation Nutrition: Taking PO's Result Diagrams: 11/04/17 18:25 11/04/17 18:25 Additional Lab and Data: Lab Results 11/04/17 11/04/17 Range/Units 18:25 18:25 WBC 5.9 (3.5-10.8) 10^3/ul RBC 4.26 (4.0-5.4) 10^6/ul Hgb 12.9 (12.0-16.0) g/dl Hct 39 (35-47) % MCV 91 (80-97) fL MCH 30 (27-31) pg MCHC 33 (31-36) g/dl RDW 13 (10.5-15) % Plt Count 167 (150-450) 10^3/ul MPV 11 H (7.4-10.4) um3 Neut % (Auto) 66.8 (38-83) % Lymph % (Auto) 23.7 L (25-47) % [place] % (Auto) 7.9 (1-9) % Eos % (Auto) 1.0 (0-6) % Baso % (Auto) 0.6 (0-2) % Absolute Neuts (auto) 3.9 (1.5-7.7) 10^3/ul Absolute Lymphs (auto) 1.4 (1.0-4.8) 10^3/ul Absolute Monos (auto) 0.5 (0-0.8) 10^3/ul Absolute Eos (auto) 0.1 (0-0.6) 10^3/ul Absolute Basos (auto) 0 (0-0.2) 10^3/ul Absolute Nucleated RBC 0 10^3/ul Nucleated RBC % 0 INR (Anticoag Therapy) 1.02 (0.77-1.02) APTT 32.5 (26.0-36.3) seconds Microbiology and Other Data: Microbiology 11/04/17 22:45 Nasal Screen MRSA (PCR)(ROSA) - Final Nasal Mrsa Negative Assess/Plan/Problems-Billing Assessment: - Patient Problems (1) High-grade atrioventricular block Code(s): I44.39 - OTHER ATRIOVENTRICULAR BLOCK SNOMED Code(s): 570822385 Comment: - Pacemaker insertion POD0 - Remain on tele in ICU - Received lasix, monitor I&O - Appreciate and further input from cardiology - Added tramadol PRN surgical pain (2) Asymptomatic bacteriuria Code(s): R82.71 - BACTERIURIA SNOMED Code(s): 258261672 Comment: - suspect colonization - follow cultures - receiving macrodantin (3) Hypertension Code(s): I10 - ESSENTIAL (PRIMARY) HYPERTENSION SNOMED Code(s): 55909953 Comment: - Suspect 2/2 to age - Would allow some permissive hypertension, MAP's are below 100 today - Continue to monitor - Stable/asymptomatic (4) Bradycardia Code(s): R00.1 - BRADYCARDIA, UNSPECIFIED SNOMED Code(s): 27219378 Comment: - Now resolved after PM insertion - Continue to monitor on tele Status and Disposition: Remain inpatient in ICU for continued cardiac care and monitoring. Will defer to cardiology for downgrade. Counseling and/or Coordination of Care Minutes: Coordinated with staff and patient. Time spent >45mins.
[2017-11-05] MEDS: traMADol TAB* 50 MG PO PRN (17:50)
[2017-11-05] MEDS: Acetaminophen TAB* 325 MG PO PRN (21:33)
[2017-11-06] MEDS: traMADol TAB* 50 MG PO PRN (00:13)
[2017-11-06] MEDS: Heparin VIAL(*) 5000 UNITS/ML VIAL (FIVE THOUSAND) SUBCUT SCH ×3 (06:22→23:06)
[2017-11-06] MEDS: Acetaminophen TAB* 325 MG PO PRN ×3 (06:22→19:34)
[2017-11-06] MEDS: ceFAZolin 1 GM in Dextrose (*) 1 GM/50 ML BAG IVPB SCH ×3 (07:30→23:06)
[2017-11-06] MEDS ORDERED: Ondansetron INJ* 2 MG/ML VIAL IV PRN (09:04)
[2017-11-06] MEDS ORDERED: Ondansetron INJ* 2 MG/ML VIAL ONE (09:11)
--- NOTE | 2017-11-06 09:28 | RAD ---
Indication: Pacemaker placement. 2 views of the chest are reviewed. Comparison is made with previous exam dated November 05, 2018. Pacemaker leads are in place and unchanged in position. No pneumothorax is noted. Interstitial edema persists. IMPRESSION: Pacemaker leads in place. Interstitial edema consistent with CHF unchanged from previous exam. No pneumothorax is noted.
[2017-11-06 09:40] LABS: ABS Basophils 0 10^3/ul (0-0.2); ABS Eosinophils 0 10^3/ul (0-0.6); ABS Lymphocytes 0.6 10^3/ul (1.0-4.8); ABS Monocytes 0.3 10^3/ul (0-0.8); ABS Neutrophils 4.2 10^3/ul (1.5-7.7); ABS Nucleated RBC 0 10^3/ul; Eosinophil % 0.8 % (0-6); Hematocrit 38 % (35-47); Hemoglobin 12.6 g/dl (12.0-16.0); Lymphocyte % 10.9 % (25-47); Mean Corpuscular HGB Conc 33 g/dl (31-36); Mean Corpuscular Hemoglobin 30 pg (27-31); Mean Corpuscular Volume 91 fL (80-97); Mean Platelet Volume 10 um3 (7.4-10.4); Nucleated Red Blood Cells % 0; Platelet Count 144 10^3/ul (150-450); Red Blood Count 4.18 10^6/ul (4.0-5.4); Red Cell Distribution Width 13 % (10.5-15); White Blood Count 5.1 10^3/ul (3.5-10.8)
[2017-11-06] MEDS ORDERED: Furosemide IV* 10 MG/ML 2 ML VIAL (20 MG) IV ONE (09:50)
--- NOTE | 2017-11-06 09:57 | PN ---
Subjective Date of Service: 11/06/17 - CC: syncope, light headed Interval History: Pt did well overnight, in radiology this AM, [place], transiently lightheaded, feels better now. Still SOB, sats low off O2. Medications Active Medications: Acetaminophen (Tylenol Tab*) 650 mg PO Q6H PRN PRN Reason: PAIN Last Admin: 11/06/17 06:22 Dose: 650 mg Heparin Sodium (Porcine) (Heparin Vial(*)) 5,000 units SUBCUT Q8HR JERSON Last Admin: 11/06/17 06:22 Dose: 5,000 units Cefazolin Sodium/Dextrose (Kefzol 1 Gm In Dextrose Duplex (*)) 1 gm in 50 mls @ 200 mls/hr IVPB Q8H JERSON Last Admin: 11/06/17 07:30 Dose: 200 mls/hr Ondansetron HCl (Zofran Inj*) 4 mg IV Q6H PRN PRN Reason: NAUSEA Last Admin: 11/06/17 09:15 Dose: 4 mg Tramadol HCl (Ultram*) 50 mg PO Q8H PRN PRN Reason: PAIN - MODERATE TO SEVERE Last Admin: 11/06/17 00:13 Dose: 50 mg Objective Vital Signs: Temp Pulse Resp BP Pulse Ox 97.7 F 59 18 172/82 94 11/06/17 08:00 11/06/17 08:01 11/06/17 08:01 11/06/17 08:01 11/06/17 08:01 Oxygen Devices in Use Now: Nasal Cannula Appearance: elderly female, talking on the phone, appears comfortable. Eyes: PERRLA Ears/Nose/Mouth/Throat: Clear Oropharnyx, Mucous Membranes Moist Neck: NL Appearance and Movements; NL JVP Respiratory: Symmetrical Chest Expansion and Respiratory Effort - diminished breath sounds. Cardiovascular: NL Sounds; No Murmurs; No JVD, RRR Abdominal: No Hepatosplenomegaly Lymphatic: No Inguinal Adenopathy Extremities: No Edema Skin: No Rash or Ulcers - incision healing well, no ecchymosis or hematoma, no infection. Neurological: Alert and Oriented x 3, NL Muscle Strength and Tone Lines/Tubes/Other Access: Clean, Dry and Intact Peripheral IV Laboratory Results: 11/06/17 09:30 INR (Anticoag Therapy) 1.02 (0.77-1.02) 11/04/17 18:25 APTT 32.5 seconds (26.0-36.3) 11/04/17 18:25 Total Bilirubin 0.50 mg/dL (0.2-1.0) 11/04/17 18:25 AST 21 U/L (13-39) 11/04/17 18:25 ALT 27 U/L (7-52) 11/04/17 18:25 Alkaline Phosphatase 66 U/L (34-104) 11/04/17 18:25 CK-MB (CK-2) 3.9 ng/mL (0.6-6.3) 11/04/17 18:25 B-Natriuretic Peptide 627 pg/mL (-100) H 11/04/17 18:25 Total Protein 6.9 g/dL (6.4-8.9) 11/04/17 18:25 Albumin 3.8 g/dL (3.2-5.2) 11/04/17 18:25 Globulin 3.1 g/dL (2-4) 11/04/17 18:25 Albumin/Globulin Ratio 1.2 (1-3) 11/04/17 18:25 TSH 5.46 mcIU/mL (0.34-5.60) 11/04/17 18:25 11/04/17 23:55 Troponin I 0.02 Diagnostic Imaging: CXR today: CHF/pulmonary edema, leads in place, no pneuothorax. EKG Data: Pacer check: excellent pacing thresholds, lead impedance good, good sensing A lead, no underlying [place] ventricular rhythm seen. Assessment/Plan 87 yo female POD #1 dual chamber pacer implant, good lead placement and thresholds. N/V uncertain etiology. Pulmonary Edema with normal LV systolic function but recent bradycardia. Pacer: -Continue kefzol or keflex for 5 days total. -Needs wound check next week with me. N/V - s/p brook white pending. ? due to macrodantin, being stopped. I will check an limited echo to ensure no effusion (pericardial) CHF -Diastolic, possibly related to CHB and bradycardia with decreased forward flow and / or HTN. IV lasix today.
[2017-11-06 09:58] LABS: EGFR Non-African American 114.1 (>60)
--- NOTE | 2017-11-06 11:37 | ECHO ---
Patient: ANURAG RICARDO [facility] Rec#: [id number] : 1930 Date: 11/06/2017 Age: 87y Height: 149.86 cm / 59.0 in Weight: 63.96 kg / 141.0 lbs Sex: F BSA: 1.59 Room#: ICU 3 Admit Date#: 11/05/2017 Type: Inpatient Referring: Lyly Read MD Reading: Lyly Read MD Film Waxer: Dodie Charles,RD,RDMS CC: Magalis Griffin, SUPERVISOR IN CIRCUIT TESTING Transthoracic Echocardiogram Indication: Heart Block BP: 172/82 HR: 60 Rhythm: Paced Findings History: LIMITED ECHO. S/P dual-chambered pacemaker, heart block, syncope Technical Comments: The study quality is good. Left Ventricle: The estimated ejection fraction is 50-55%. There is abnormal ventricular septal wall motion consistent with right ventricular pacemaker. Right Ventricle: The right ventricular global systolic function is normal. A pacemaker wire is visualized in the right ventricle. Right Atrium: A pacemaker wire is visualized in the right atrium. Tricuspid Valve: The tricuspid valve leaflets are normal. There is mild tricuspid regurgitation. The right ventricular systolic pressure is estimated at 39 mmHg. There is evidence of mild pulmonary hypertension. Pericardium: There is no significant pericardial effusion. A left pleural effusion is present. Venous: The inferior vena cava appears normal in size. There is a greater than 50% respiratory change in the inferior vena cava dimension. Conclusions There is no significant pericardial effusion. A left pleural effusion is present. The estimated ejection fraction is 50-55%. There is abnormal ventricular septal wall motion consistent with right ventricular pacemaker. A pacemaker wire is visualized in the right atrium. A pacemaker wire is visualized in the right ventricle. The right ventricular global systolic function is normal. There is mild tricuspid regurgitation. The right ventricular systolic pressure is estimated at 39 mmHg. Compared with echo of 11/05/17, no longer in high degree heart block. EF is stable, septal dysychrony and pacer leads new, PA pressure previously 49 mmHg. The degree of TR has improved from moderate and MR has improved from moderate. Measurements Name Value Normal Range TR Vmax 3 m/sec - TR peak gradient 36 mmHg - RAP 3 mmHg - RVSP 39 mmHg - IVC diameter 1.4 cm -
--- NOTE | 2017-11-06 11:42 | PN ---
Subjective Date of Service: 11/06/17 Interval History: Patient seen and examined. One episode of emesis per RN. Patient states no nausea at present, but feeling tired overall. Denies chest pain, no SOB. States she feels like shes getting a cold. Afebrile, no chills, mild unproductive cough. Objective Active Medications: Acetaminophen (Tylenol Tab*) 650 mg PO Q6H PRN PRN Reason: PAIN Last Admin: 11/06/17 06:22 Dose: 650 mg Heparin Sodium (Porcine) (Heparin Vial(*)) 5,000 units SUBCUT Q8HR [facility] Last Admin: 11/06/17 06:22 Dose: 5,000 units Cefazolin Sodium/Dextrose (Kefzol 1 Gm In Dextrose Duplex (*)) 1 gm in 50 mls @ 200 mls/hr IVPB Q8H [facility] Last Admin: 11/06/17 07:30 Dose: 200 mls/hr Ondansetron HCl (Zofran Inj*) 4 mg IV Q6H PRN PRN Reason: NAUSEA Last Admin: 11/06/17 09:15 Dose: 4 mg Tramadol HCl (Ultram*) 50 mg PO Q8H PRN PRN Reason: PAIN - MODERATE TO SEVERE Last Admin: 11/06/17 00:13 Dose: 50 mg Vital Signs - 8 hr 11/06/17 11/06/17 11/06/17 04:00 04:01 04:30 Temperature 98.9 F Pulse Rate 64 66 60 Respiratory 21 21 16 Rate Blood Pressure 178/87 169/89 (mmHg) O2 Sat by Pulse 96 97 95 Oximetry 11/06/17 11/06/17 11/06/17 05:00 05:30 06:00 Temperature Pulse Rate 60 60 60 Respiratory 15 15 15 Rate Blood Pressure 153/77 166/81 166/78 (mmHg) O2 Sat by Pulse 96 96 96 Oximetry 11/06/17 11/06/17 11/06/17 06:47 07:00 07:30 Temperature Pulse Rate 60 60 62 Respiratory 23 19 20 Rate Blood Pressure 179/87 177/94 153/98 (mmHg) O2 Sat by Pulse 97 96 97 Oximetry 11/06/17 11/06/17 11/06/17 08:00 08:01 09:00 Temperature 97.7 F Pulse Rate 63 59 Respiratory 22 18 15 Rate Blood Pressure 172/82 (mmHg) O2 Sat by Pulse 97 94 Oximetry 11/06/17 11/06/17 11/06/17 09:05 09:08 09:30 Temperature Pulse Rate 64 60 60 Respiratory 15 16 16 Rate Blood Pressure 186/82 171/102 (mmHg) O2 Sat by Pulse 95 96 97 Oximetry 11/06/17 11/06/17 10:00 11:16 Temperature 97.4 F Pulse Rate 60 Respiratory 18 Rate Blood Pressure 166/79 (mmHg) O2 Sat by Pulse 97 Oximetry Oxygen Devices in Use Now: None Appearance: Alert, tired, NAD Eyes: No Scleral Icterus, PERRLA Ears/Nose/Mouth/Throat: NL Teeth, Lips, Gums Neck: NL Appearance and Movements; NL JVP Respiratory: Symmetrical Chest Expansion and Respiratory Effort, Clear to Auscultation Cardiovascular: NL Sounds; No Murmurs; No JVD, No Edema, - - Paced, 62 on tele, no ectopy Abdominal: NL Sounds; No Tenderness; No Distention Extremities: No Edema, No Clubbing, Cyanosis Skin: No Rash or Ulcers Neurological: Alert and Oriented x 3, NL Sensation, NL Muscle Strength and Tone Nutrition: Taking PO's Result Diagrams: 11/06/17 09:30 11/06/17 09:30 Additional Lab and Data: Lab Results 11/04/17 11/04/17 Range/Units 18:25 18:25 WBC 5.9 (3.5-10.8) 10^3/ul RBC 4.26 (4.0-5.4) 10^6/ul Hgb 12.9 (12.0-16.0) g/dl Hct 39 (35-47) % MCV 91 (80-97) fL MCH 30 (27-31) pg MCHC 33 (31-36) g/dl RDW 13 (10.5-15) % Plt Count 167 (150-450) 10^3/ul MPV 11 H (7.4-10.4) um3 Neut % (Auto) 66.8 (38-83) % Lymph % (Auto) 23.7 L (25-47) % [place] % (Auto) 7.9 (1-9) % Eos % (Auto) 1.0 (0-6) % Baso % (Auto) 0.6 (0-2) % Absolute Neuts (auto) 3.9 (1.5-7.7) 10^3/ul Absolute Lymphs (auto) 1.4 (1.0-4.8) 10^3/ul Absolute Monos (auto) 0.5 (0-0.8) 10^3/ul Absolute Eos (auto) 0.1 (0-0.6) 10^3/ul Absolute Basos (auto) 0 (0-0.2) 10^3/ul Absolute Nucleated RBC 0 10^3/ul Nucleated RBC % 0 INR (Anticoag Therapy) 1.02 (0.77-1.02) APTT 32.5 (26.0-36.3) seconds Microbiology and Other Data: Microbiology 11/04/17 22:45 Nasal Screen MRSA (PCR)(ROSA) - Final Nasal Mrsa Negative Assess/Plan/Problems-Billing Assessment: - Patient Problems (1) High-grade atrioventricular block Code(s): I44.39 - OTHER ATRIOVENTRICULAR BLOCK SNOMED Code(s): 999983612 Comment: - Primary POC as per Dr. Read - Pacemaker insertion POD1 - Remain on tele in ICU - Urine output adequate - Added tramadol PRN surgical pain (2) Asymptomatic bacteriuria Code(s): R82.71 - BACTERIURIA SNOMED Code(s): 181445487 Comment: - suspect colonization - Cultures negative - DC macrodantin (3) Hypertension Code(s): I10 - ESSENTIAL (PRIMARY) HYPERTENSION SNOMED Code(s): 84368730 Comment: - Continue to follow - Per patient, BP has always been low/normal at home - Will defer to cardiology if they want to initiate tx, while inpatient? Remains asymptomatic (4) Bradycardia Code(s): R00.1 - BRADYCARDIA, UNSPECIFIED SNOMED Code(s): 46819307 Comment: - Resolved (5) Vomiting Code(s): R11.10 - VOMITING, UNSPECIFIED SNOMED Code(s): 680703327 Comment: - one episode per RN - Zofran PRN - maybe r/t atbx which are now DC'd, and/or anesthesia? - continue to monitor Status and Disposition: Remain inpatient in ICU for further care and monitoring. Counseling and/or Coordination of Care Minutes: Coordinated with patient, staff and Dr. Read.
[2017-11-06] MEDS ORDERED: Furosemide TAB* 20 MG PO ONE (11:59)
[2017-11-07] MEDS: traMADol TAB* 50 MG PO PRN (00:47)
[2017-11-07] MEDS: Heparin VIAL(*) 5000 UNITS/ML VIAL (FIVE THOUSAND) SUBCUT SCH ×3 (05:40→21:47)
[2017-11-07] MEDS: ceFAZolin 1 GM in Dextrose (*) 1 GM/50 ML BAG IVPB SCH ×3 (05:40→22:50)
[2017-11-07] MEDS: Nitrofurantoin Macrocrystals* 100 MG CAP PO SCH (07:24)
--- NOTE | 2017-11-07 10:18 | PN ---
Subjective Date of Service: 11/07/17 Interval History: Patient seen and examined. OOB to chair, appears to be improved from yesterday. Remains tired but appetite is improved. Remains on continuous O2 and becomes SOB with exertion. No more vomiting. Denies chest pain, no headache, no nausea. Objective Active Medications: Acetaminophen (Tylenol Tab*) 650 mg PO Q6H PRN PRN Reason: PAIN Last Admin: 11/06/17 19:34 Dose: 650 mg Heparin Sodium (Porcine) (Heparin Vial(*)) 5,000 units SUBCUT Q8HR [facility] Last Admin: 11/07/17 05:40 Dose: 5,000 units Cefazolin Sodium/Dextrose (Kefzol 1 Gm In Dextrose Duplex (*)) 1 gm in 50 mls @ 200 mls/hr IVPB Q8H [facility] Last Admin: 11/07/17 05:40 Dose: 200 mls/hr Ondansetron HCl (Zofran Inj*) 4 mg IV Q6H PRN PRN Reason: NAUSEA Last Admin: 11/06/17 09:15 Dose: 4 mg Tramadol HCl (Ultram*) 50 mg PO Q8H PRN PRN Reason: PAIN - MODERATE TO SEVERE Last Admin: 11/07/17 00:47 Dose: 50 mg Vital Signs - 8 hr 11/07/17 11/07/17 11/07/17 03:00 04:00 04:08 Temperature 97.7 F Pulse Rate 60 66 63 Respiratory 15 18 21 Rate Blood Pressure 146/74 170/83 (mmHg) O2 Sat by Pulse 96 96 95 Oximetry 11/07/17 11/07/17 11/07/17 05:00 06:00 07:00 Temperature Pulse Rate 60 60 60 Respiratory 18 16 17 Rate Blood Pressure 165/84 159/128 150/87 (mmHg) O2 Sat by Pulse 95 97 95 Oximetry 11/07/17 11/07/17 11/07/17 07:25 08:00 09:00 Temperature 97.8 F Pulse Rate 63 65 Respiratory 16 16 19 Rate Blood Pressure (mmHg) O2 Sat by Pulse 100 85 Oximetry 11/07/17 11/07/17 09:01 10:00 Temperature Pulse Rate 64 Respiratory 19 17 Rate Blood Pressure 143/77 (mmHg) O2 Sat by Pulse 94 94 Oximetry Oxygen Devices in Use Now: Nasal Cannula Appearance: Alert, tired Eyes: No Scleral Icterus, PERRLA Ears/Nose/Mouth/Throat: NL Teeth, Lips, Gums, Mucous Membranes Moist Neck: NL Appearance and Movements; NL JVP, Trachea Midline Respiratory: Symmetrical Chest Expansion and Respiratory Effort, Clear to Auscultation - clear apices, diminished bases, no wheeze Cardiovascular: NL Sounds; No Murmurs; No JVD, No Edema, - - paced Abdominal: NL Sounds; No Tenderness; No Distention Skin: No Rash or Ulcers Neurological: Alert and Oriented x 3, NL Sensation, NL Muscle Strength and Tone Nutrition: Taking PO's Result Diagrams: 11/06/17 09:30 11/06/17 09:30 Additional Lab and Data: Lab Results Microbiology and Other Data: Microbiology 11/04/17 22:45 Nasal Screen MRSA (PCR)(ROSA) - Final Nasal Mrsa Negative Diagnostic Imaging: Patient: ANURAG RICARDO [facility] Rec#: [id number] : 1930 Date: 11/06/2017 Age: 87y Height: 149.86 cm / 59.0 in Weight: 63.96 kg / 141.0 lbs Sex: F BSA: 1.59 Room#: ICU 3 Admit Date#: 11/05/2017 Type: Inpatient Referring: Lyly Read MD Reading: Lyly Read MD Noodle Catalyst Maker: Dodie CharlesLOVEL[facility],RDMS CC: Magalis Griffin, PROCESS ENG Transthoracic Echocardiogram Indication: Heart Block BP: 172/82 HR: 60 Rhythm: Paced Findings History: LIMITED ECHO. S/P dual-chambered pacemaker, heart block, syncope Technical Comments: The study quality is good. Left Ventricle: The estimated ejection fraction is 50-55%. There is abnormal ventricular septal wall motion consistent with right ventricular pacemaker. Right Ventricle: The right ventricular global systolic function is normal. A pacemaker wire is visualized in the right ventricle. Right Atrium: A pacemaker wire is visualized in the right atrium. Tricuspid Valve: The tricuspid valve leaflets are normal. There is mild tricuspid regurgitation. The right ventricular systolic pressure is estimated at 39 mmHg. There is evidence of mild pulmonary hypertension. Pericardium: Assess/Plan/Problems-Billing Assessment: This is an 87 year old female, s/p PM insertion for symptomatic high grade heart block, also with pleural effusion, oxygen-dependent with additional episode of vomiting yesterday. - Patient Problems (1) High-grade atrioventricular block Code(s): I44.39 - OTHER ATRIOVENTRICULAR BLOCK SNOMED Code(s): 627453633 Comment: - Primary POC as per Dr. Read - Pacemaker insertion POD2 - No changes on ECHO (2) Asymptomatic bacteriuria Code(s): R82.71 - BACTERIURIA SNOMED Code(s): 757827067 Comment: - Suspect colonization - Cultures negative - DC macrodantin (3) Hypertension Code(s): I10 - ESSENTIAL (PRIMARY) HYPERTENSION SNOMED Code(s): 95488229 Comment: - BP improved last 24 hours - continue to monitor (4) Bradycardia Code(s): R00.1 - BRADYCARDIA, UNSPECIFIED SNOMED Code(s): 38103726 Comment: - Resolved (5) Vomiting Code(s): R11.10 - VOMITING, UNSPECIFIED SNOMED Code(s): 698879389 Comment: - one episode per RN yesterday - Zofran PRN - PM with good placement per echo - appears to be resolved, tolerating PO today (6) Pleural effusion Code(s): J90 - PLEURAL EFFUSION, NOT ELSEWHERE CLASSIFIED SNOMED Code(s): 13019184 Comment: - Remains on O2 - Will recheck BNP today, may do CT of chest later to see if effusion is resolving - Check sats on and off O2 today Status and Disposition: Remain inpatient. May downgrade from ICU later today if remains stable. Appreciate recs from PT re: CP rehab vs home with [place] at [place]. Counseling and/or Coordination of Care Minutes: Coordinated with Dr. Gely Read. Time spent 45mins.
--- NOTE | 2017-11-07 17:32 | PN ---
Subjective Date of Service: 11/07/17 - cc: weakness Interval History: Pt did well overnight, no longer short of breath. This AM felt very weak getting OOB to the commode. Did better with boot on for fx ankle. PT saw, assisted iwth the walker in her room. Medications Active Medications: Acetaminophen (Tylenol Tab*) 650 mg PO Q6H PRN PRN Reason: PAIN Last Admin: 11/06/17 19:34 Dose: 650 mg Heparin Sodium (Porcine) (Heparin Vial(*)) 5,000 units SUBCUT Q8HR JERSON Last Admin: 11/07/17 16:00 Dose: 5,000 units Cefazolin Sodium/Dextrose (Kefzol 1 Gm In Dextrose Duplex (*)) 1 gm in 50 mls @ 200 mls/hr IVPB Q8H JERSON Last Admin: 11/07/17 15:56 Dose: 200 mls/hr Ondansetron HCl (Zofran Inj*) 4 mg IV Q6H PRN PRN Reason: NAUSEA Last Admin: 11/06/17 09:15 Dose: 4 mg Tramadol HCl (Ultram*) 50 mg PO Q8H PRN PRN Reason: PAIN - MODERATE TO SEVERE Last Admin: 11/07/17 00:47 Dose: 50 mg Objective Vital Signs: Temp Pulse Resp BP Pulse Ox 99.5 F 69 20 157/70 96 11/07/17 16:00 11/07/17 17:01 11/07/17 17:01 11/07/17 16:00 11/07/17 17:01 Oxygen Devices in Use Now: Nasal Cannula Appearance: elderly female, seated, again talking on the phone, appears comfortable. Eyes: PERRLA Ears/Nose/Mouth/Throat: Clear Oropharnyx, Mucous Membranes Moist Neck: NL Appearance and Movements; NL JVP Respiratory: Symmetrical Chest Expansion and Respiratory Effort - diminished breath sounds. Cardiovascular: NL Sounds; No Murmurs; No JVD, RRR Abdominal: No Hepatosplenomegaly Lymphatic: No Inguinal Adenopathy Extremities: No Edema Skin: No Rash or Ulcers - incision healing well, no abnormalities noted. Neurological: Alert and Oriented x 3, NL Muscle Strength and Tone Lines/Tubes/Other Access: Clean, Dry and Intact Peripheral IV Laboratory Results: 11/06/17 09:30 11/06/17 09:30 INR (Anticoag Therapy) 1.02 (0.77-1.02) 11/04/17 18:25 APTT 32.5 seconds (26.0-36.3) 11/04/17 18:25 Total Bilirubin 0.50 mg/dL (0.2-1.0) 11/04/17 18:25 AST 21 U/L (13-39) 11/04/17 18:25 ALT 27 U/L (7-52) 11/04/17 18:25 Alkaline Phosphatase 66 U/L (34-104) 11/04/17 18:25 CK-MB (CK-2) 3.9 ng/mL (0.6-6.3) 11/04/17 18:25 B-Natriuretic Peptide 366 pg/mL (-100) H 11/07/17 12:08 Total Protein 6.9 g/dL (6.4-8.9) 11/04/17 18:25 Albumin 3.8 g/dL (3.2-5.2) 11/04/17 18:25 Globulin 3.1 g/dL (2-4) 11/04/17 18:25 Albumin/Globulin Ratio 1.2 (1-3) 11/04/17 18:25 TSH 5.46 mcIU/mL (0.34-5.60) 11/04/17 18:25 11/04/17 23:55 Troponin I 0.02 Assessment/Plan 87 yo female POD #2 dual chamber pacer implant, SOB and CHF and pleural effusions, s/p lasix. Breathing improved but exam still abnormal in the bases of the lungs. Pt weak amublating this AM. Pacer: -OK to discharge wrt pacer. -Keflex PO for three more days (250 TID) -Needs wound check next week with me. N/V - resolved. SOB -Improved, but may need additional lasix for a day or 2 more, my hope is with resolution of heart block it will improve, but there could be other etiologies behind the pulmonary edema and pleural effusions. Weakness -Ambulate in unit, agree with the walker with age, ankle fx and post op. Pt has an appt with new science consultant Friday, she should keep this to f/u on non cardiac issues above in addition to wound check with me.
[2017-11-08] MEDS: Heparin VIAL(*) 5000 UNITS/ML VIAL (FIVE THOUSAND) SUBCUT SCH ×3 (05:55→21:31)
[2017-11-08] MEDS: ceFAZolin 1 GM in Dextrose (*) 1 GM/50 ML BAG IVPB SCH (05:55)
--- NOTE | 2017-11-08 11:35 | PN ---
Subjective Date of Service: 11/08/17 Interval History: Ms. Anderson reports that she is feeling much better today. She has been up ambulating around the unit. She reports no dyspnea on exertion. She further denies chest pain. She has also had no further nausea or vomiting and denies abdominal pain. She notes that she has asked her cousins from [place] to come stay with her and a friend has offered for her to come to stay with her until they arrive. Objective Active Medications: Acetaminophen (Tylenol Tab*) 650 mg PO Q6H PRN Heparin Sodium (Porcine) (Heparin Vial(*)) 5,000 units SUBCUT Q8HR JERSON Cefazolin Sodium/Dextrose (Kefzol 1 Gm In Dextrose Duplex (*)) 1 gm in 50 mls @ 200 mls/hr IVPB Q8H JERSON Ondansetron HCl (Zofran Inj*) 4 mg IV Q6H PRN Tramadol HCl (Ultram*) 50 mg PO Q8H PRN Vital Signs: Temp Pulse Resp BP Pulse Ox 98.1 F 77 21 160/79 93 11/08/17 09:47 11/08/17 11:12 11/08/17 11:12 11/08/17 11:12 11/08/17 11:12 Oxygen Devices in Use Now: None Appearance: Elderly female sitting up in chair in NAD Eyes: No Scleral Icterus Ears/Nose/Mouth/Throat: Mucous Membranes Moist Neck: Trachea Midline Respiratory: Symmetrical Chest Expansion and Respiratory Effort, Clear to Auscultation Cardiovascular: NL Sounds; No Murmurs; No JVD, - - +1 edema to left lower extremity Abdominal: NL Sounds; No Tenderness; No Distention, No Hepatosplenomegaly Lymphatic: No Cervical Adenopathy Skin: No Rash or Ulcers Neurological: Alert and Oriented x 3, NL Muscle Strength and Tone Nutrition: Taking PO's Result Diagrams: 11/06/17 09:30 11/06/17 09:30 Additional Lab and Data: . Microbiology and Other Data: . Diagnostic Imaging: . Assess/Plan/Problems-Billing Assessment: Ms. Anderson is an 87 year old female, s/p PM insertion for symptomatic high grade heart block now with fluid overload and pleural effusion, oxygen- dependent with additional episode of vomiting yesterday. - Patient Problems (1) CHF (congestive heart failure) Comment: - Off oxygen, denies dyspnea. - Acute diastolic dysfunction in setting of bradycardia, with pleural effusions. - Plan for 20mg lasix po x 1 now given elevated BP. May continue this at discharge or alternate low dose anti-hypertensive if remains elevated. (2) High-grade atrioventricular block Comment: - Primary POC as per Dr. Read. - Pacemaker insertion POD3. - Continue keflex x 3 days. (3) Hypertension Comment: - BP 160-170 - Lasix x 1 now, may need low dose anti-hypertensive at discharge. (4) Asymptomatic bacteriuria Comment: - Suspect colonization - Cultures negative - DC macrodantin (5) Vomiting Comment: - One episode. - Zofran PRN. (6) DVT prophylaxis Comment: - Heparin SQ. Status and Disposition: Remain inpatient. Transfer to telemetry. Patient hopeful for discharge tomorrow with support from family and friends.
[2017-11-08] MEDS ORDERED: Furosemide TAB* 20 MG PO ONE (11:50)
--- NOTE | 2017-11-08 12:41 | OP ---
CC: Dr. Aguiar; Dr. Sylvia Griffin PACEMAKER IMPLANTATION: DATE OF OPERATION: 11/05/17 DATE OF : 30 SURGEON: Lyly Read MD PRE-OP DIAGNOSES: High-degree heart block and syncope. POST-OP DIAGNOSES: High-degree heart block and syncope. ANESTHESIA: MAC. COMPLICATIONS: None. ESTIMATED BLOOD LOSS: Less than 5 cc. DESCRIPTION OF PROCEDURE: The indications, risks, and benefits of the procedure were discussed in de pth with the patient and she was amenable to proceeding. The patient is right-handed and the left subclavian fossa was prepped and draped in the usual sterile fashion. A time-out procedure was called. The patient received 10 cc of radiopaque dye in the left upper extremity outlining left axillary and left subclavian vein. Following this, the patient recei donnie 1% lidocaine locally in addition to Versed and fentanyl for sedation, amounts documented on consc ious sedation sheet. Using a 10-blade knife, a 3-cm incision was made in the left subclavian fossa and using Bovie and angela nt dissection, was extended to the level of the pectoralis muscle. Additional lidocaine was infused inferiorly and medially and using blunt dissection, a small pocket was fashioned. Using a modified Seldinger technique, the left subclavian vein was cannulated and using fluoroscopic guidance, a guidewire inserted. This was repeated a second time. Using an introducer technique, the right ventricular lead was guided into the right ventricular apex and actively fixed in place. Pacing and sensing thresholds were checked. Sensing was not ideal, but pacing was excellent. We then used a second guidewire and a second introducer and the atrial lead w as guided into the right atrial appendage and actively fixed in place. Pacing and sensing thresholds were checked and found to be good. We then rechecked the sensing and pacing thresholds of ventricul ar lead and the sensing had improved. We then sutured both leads to the pectoralis muscle taking car e of that adequate additional lead was placed. Following this, the pocket was copiously irrigated and leads were attached to the generator. The generator was placed in the pocket. The incision was vlad sed with 2 layers of absorbable suture, 2-0 followed by 4-0, followed by roni and external dressin g. We had checked high volts on both leads and no diaphragmatic pacing had been noted. FINDINGS: The system is an MRI-compatible system. The device is a [employer] model A2DR01, serial nu mber [id number]. The atrial lead is a Medtronic model 5076-45, serial number [id number]. The ventri cular lead is a Medtronic model 5076-52, serial number [id number]. P waves were sensed at 0.7 volts, atrial lead impedance 532 ohms, and a ventricular pacing threshold of 1 volt at 0.5 milliseconds. R waves were sensed at 4.1 millivolts with a ventricular lead impedance of 577 ohms and a ventricular pacing threshold of 0.6 volts at 0.5 milliseconds. The patient was hemodynamically stable throughout the procedure. [id number]/[facility] #: [id number]
[2017-11-08] MEDS: Cephalexin CAP* 250 MG PO SCH ×2 (14:00→21:31)
[2017-11-09] MEDS: Heparin VIAL(*) 5000 UNITS/ML VIAL (FIVE THOUSAND) SUBCUT SCH ×2 (06:25→13:48)
[2017-11-09] MEDS: Cephalexin CAP* 250 MG PO SCH ×2 (08:12→13:55)
[2017-11-09 12:55] VITALS: BP 164/79
--- NOTE | 2017-11-10 14:06 | DS ---
AMENDED REPORT NOW INCLUDES COSIGNER DESIGNATION - ESIGNED BEFORE ADJUSTMENTS CC: Magalis Griffin NP * DISCHARGE SUMMARY: DATE OF ADMISSION: 11/04/17 DATE OF DISCHARGE: 11/09/17 PRIMARY CARE PROVIDER: Magalis Girffin NP. ATTENDING DURING THIS HOSPITALIZATION: Marcos Olsen MD * (DICTATED BY CHARLY WALLS NP) HOSPITAL COURSE: This is a very pleasant 87-year-old female patient that came in to the hospital with a report of dizziness, shortness of breath, and some exertional diaphoresis. She was lightheaded and complaining of near-syncopal episodes at home. She has no known particular medical history. However, she was out with a friend shopping for [employer] the day before and had no issues and then suddenly had these episodes of dizziness. Her friend brought her to the emergency department to be evaluated. On particular note, the patient does travel out of the country several times of the year. She does live in [facility] for 3 months and then here in [place] for 3 months as well. The patient had an EKG over the summer and a Holter monitor and a transthoracic echo earlier in the year but there was no abnormal findings on any of these diagnostics. She was in [place] and in her usual state of health 3 months prior to admission here and again no issues. However, when she came to the emergency department , it was found on her EKG to have some severe bradycardia. Heart rate was in the 30s. She had a Mobitz I block with a 2:1 conduction. As she progressed through her hospitalization, she was in a high- grade AV block again with heart rate in the 30s and was thrown into an acute congestive heart failure where her BNP was elevated at 627. She was definitely fluid overloaded and had bilateral pleural effusions as well. She was seen by Cardiology. Another echocardiogram was also performed at that time. Echocardiogram showed the patient remained in high-degree heart block throughout the study, left ventricular chamber size was normal with basal septal hypertrophy noted. A global left ventricular wall motion and contractility were within normal limits. Ejection fraction estimated to be between 55% and 60%. Left atrium with mild dilatation. Right ventricular chamber size with systolic function were within normal limits. Trace aortic regurgitation, right ventricular systolic pressure estimated at 49 mmHg, which is moderately elevated and also the left pleural effusion was present on that exam. The patient was seen by Dr. Lyly Read on 11/05/17 and it was determined that she should have a pacemaker inserted. She underwent that procedure on 11/05/17. Surgery itself was uneventful. She had no intraoperative issues. However, while she was recovering in the ICU, she did become oxygen dependent and continued to be fluid overloaded, probably secondary to her prolonged bradycardia. The patient received some IV Lasix and was on oxygen. She also had some issues with hypertension during her recovery, which was monitored; however, she was not symptomatic, so she did not receive any additional medications for them. She had a repeat echo on 11/06/17, because she also had some episodes of vomiting and Dr. Read wanted to check placement of her pacemaker and ensure that there were no issues. So, there were no acute changes on the echo on 11/06/17. The patient began to slowly come around, diurese and feel better. She was able to function and walk off oxygen and the pleural effusions according to her chest x-ray began to resolve on their own. She was downgraded from ICU on 11/08/17 and cleared for discharge on 11/09/17. LABORATORY DATA: Last laboratories dated 11/07/17: The BNP was 366, down from 627. On 11/06, her sodium was 134, potassium 3.7, chloride 100, CO2 of 29, creatinine 0.51, GFR 114. BUN and creatinine ratio 21.6, glucose 124, calcium 8.3. CBC shows WBCs 5.1, RBCs 4.18, hemoglobin 12.6, hematocrit 38, and platelets of 144. PHYSICAL EXAMINATION: On day of discharge, patient is awake and alert, no acute distress. Vital signs showed temperature 98.5, heart rate of 65, paced rhythm with no ectopy on telemetry. Respiratory rate of 20. O2 saturation 95% on room air. Blood pressure is 165/75. HEENT: The patient is atraumatic, normocephalic. PERRLA with nonicteric sclerae. Neck is supple, nontender. No carotid bruit auscultated. No JVD noted. Cardiovascular: S1, S2 are present. No audible murmurs, gallops or rubs are noted. Rate and rhythm are regular. Lungs are clear bilateral at the apices with no wheezing, rhonchi or rales noted ; mildly diminished at the bases. Abdomen is soft, nontender, nondistended. Bowel sounds present in all 4 quadrants. Musculoskeletal: There is no clubbing , no cyanosis, no edema. She has +2 distal pulses palpable. Gross motor and sensation are intact. She has a steady gait. Neurologic: She is grossly intact with no focal deficits. Psychiatric: She is cooperative and appropriate. DISCHARGE MEDICATIONS: Include, 1. Amlodipine 5 mg daily. 2. Keflex 250 mg 1 tablet 3 times a day for 2 more days. FOLLOWUP: The patient was instructed to follow up with Magalis Lazar her primary care provider in the next 4 to 7 days, Dr. Lyly Read from Cardiology in the next 1 to 2 weeks and also was given referral for [facility] who will see her on Friday and get her enrolled into visiting nurse services. The patient and her friend at bedside verbalized understanding of discharge medications, followups. All questions were answered. She was discharged in stable condition in the care of her friend. It was also explained to her to check her blood pressure when she gets home frequently with a blood pressure monitor and take a log of her blood pressures and bring it to her primary care provider at her next visit. She said that she may be monitored on new blood pressure medication and again this understanding was verbalized by both the patient and the friend that would be caring for her until [facility] can get into the house. CHARLY WALLS NP [id number]/[facility] #: [id number] GAIL
== END 2017-11-09 15:00 | disposition home or self-care (01) | DRG 242 ==
LOC: ED 17:44 → ICU 20:15 → MEDTELE 11-08 11:51
PROVIDERS: ADMIT Internal Medicine; ATTEND Internal Medicine
PROC: 0JH606Z Insertion of Pacemaker, Dual Chamber into Chest Subcutaneous Tissue and Fascia, Open Approach (ICD-10-PCS; principal; 2017-11-04)
PROC: 02H63JZ Insertion of Pacemaker Lead into Right Atrium, Percutaneous Approach (ICD-10-PCS; 2017-11-04)
PROC: 02HK3JZ Insertion of Pacemaker Lead into Right Ventricle, Percutaneous Approach (ICD-10-PCS; 2017-11-04)
DX: I44.1 Atrioventricular block, second degree (principal); I50.31 Acute diastolic (congestive) heart failure; I44.39 Other atrioventricular block; R82.71 Bacteriuria; I11.0 Hypertensive heart disease with heart failure; K57.90 Diverticulosis of intestine, part unspecified, without perforation or abscess without bleeding; Z66 Do not resuscitate; R40.2412 Glasgow coma scale score 13-15, at arrival to emergency department; R00.1 Bradycardia, unspecified; R11.2 Nausea with vomiting, unspecified; R53.1 Weakness; R06.02 Shortness of breath; R55 Syncope and collapse; Z80.1 Family history of malignant neoplasm of trachea, bronchus and lung; Z82.49 Family history of ischemic heart disease and other diseases of the circulatory system; Z82.5 Family history of asthma and other chronic lower respiratory diseases; Z72.89 Other problems related to lifestyle; Z98.49 Cataract extraction status, unspecified eye
CPT/HCPCS: 33208; 36415; 71010; 71020; 80048; 80053; 81003; 81015; 82550; 82553; 83605; 83690; 83735; 83880; 84443; 84484; 85025; 85379; 85610; 85730; 86140; 86618; 87086; 87641; 93005; 93306; 93308; 99156; 99157; A9270-GY; C1785; C1898; J0690; J1644; J1940; J2250; J2405; J3010; Q9967